=== PATIENT | male | born 1940 | race African-American/Black ===

== ENCOUNTER 2021-01-10 17:04 | Inpatient (IN) | payer MEDICARE ==
[2021-01-10 18:06] LABS: #Monocytes 0.5 10x3/uL (0.0-1.1); #Neutrophils 3.8 10x3/uL (1.5-8.4); %Basophils 0.5 % (0.0-2.0); %Eosinophils 0.3 % (0.0-6.0); %Lymphocytes 32.8 % (18.0-47.0); %Monocytes 8.2 % (0.0-10.0); Hemoglobin 12.5 g/dL (13.5-17.5); Mean Corpuscular HGB CONC 33.1 g/dL (32.0-36.0); Mean Corpuscular Hemoglobin 29.3 pg (27.0-33.0); Mean Corpuscular Volume 88.7 fl (81.2-95.1); Mean Platelet Volume 9.5 fl (7.4-10.4); Platelet Count 260 10x3/uL (150-450); RBC Distribution Width 12.4 % (11.5-14.5); Red Blood Cell (RBC) Count 4.26 10x6/uL (4.32-5.72); White Blood Cell (WBC) Count 6.5 10x3/uL (3.5-10.5)
[2021-01-10 18:26] LABS: ALT (SGPT) 15 U/L (8-55); AST (SGOT) 19 U/L (5-34); Albumin 4.1 g/dL (3.4-4.8); Alkaline Phosphatase 53 U/L (40-110); Anion Gap 14 mmol/L (10-20); BUN (Urea Nitrogen) 13 mg/dL (8.4-25.7); Bilirubin, Total 1.2 mg/dL (0.2-1.2); Calc. Creatinine Clearance 0 mL/min (70-130); Calcium 9.4 mg/dL (7.8-10.44); Carbon Dioxide 26 mmol/L (23-31); Chloride 101 mmol/L (98-107); Glucose 108 mg/dL (83-110); Magnesium 2.2 mg/dL (1.6-2.6); Potassium 4.3 mmol/L (3.5-5.1); Protein, Total 7.1 g/dL (5.8-8.1); Sodium 137 mmol/L (136-145)
[2021-01-10] MEDS ORDERED: Aspirin Chewable 81 MG TAB ONE (19:31)
[2021-01-10] MEDS ORDERED: HYDROcodone/Acetaminophen 5/325 mg Tablet PO PRN (21:16)
[2021-01-10] MEDS ORDERED: Acetaminophen 325 MG TAB PO PRN (21:16)
[2021-01-10] MEDS ORDERED: Calcium Carbonate 500 MG ChewTAB PO PRN (21:16)
[2021-01-10] MEDS ORDERED: Senokot S 8.6-50 MG TAB PO PRN (21:16)
[2021-01-10 22:11] LABS: SARS-CoV-2 NAA Rapid Test Not Detected (NotDetected)
[2021-01-10] MEDS ORDERED: cloNIDine 0.2 MG TAB PO SCH (23:00)
[2021-01-10] MEDS ORDERED: Apixaban 5 MG TAB PO SCH (23:00)
[2021-01-10] MEDS ORDERED: cloNIDine 0.1 MG TAB PO SCH (23:45)
[2021-01-11 00:02] LABS: Bilirubin Neg (Negative); Blood, Urine Negative (Negative); Clarity Clear (Clear); Glucose, Urine (Dipstick) Normal (Negative); Ketone, Urine 5 mg/dL (Negative); Leukocyte Negative (Negative); Nitrite Negative (Negative); Protein, Urine (Dipstick) Negative (Neg-Trace); Specific Gravity, Urine 1.005 (1.002-1.036); Urobilinogen Normal mg/dL (Less than 2)
[2021-01-11 00:16] LABS: Bacteria/HPF None Seen HPF (None Seen); Mucous/LPF None Seen LPF (<2+); RBC/HPF 0-3 HPF (0-3); Squamous Epithelial None Seen HPF (0-3); WBC/HPF None Seen HPF (0-3)
[2021-01-11 01:47] VITALS: BMI 24.5
[2021-01-11] MEDS ORDERED: FLU VACC QS2021-22(65YR UP)/PF 240 MCG/0.7 ML SYRINGE IM ONE (02:00)
[2021-01-11 05:40] LABS: Cardiac Risk 2.5 (Less than 4.5)
[2021-01-11 05:55] LABS: Thyroid Stimulating Hormone 0.8467 uIU/mL (0.35-4.94)
[2021-01-11] MEDS: Meclizine HCl 12.5 MG TAB PO SCH ×3 (07:06→21:01)
[2021-01-11] MEDS ORDERED: Famotidine 20 MG TAB PO SCH (09:00)
[2021-01-11] MEDS: cloNIDine 0.1 MG TAB PO SCH ×2 (10:29→21:00)
[2021-01-11] MEDS: Aspirin 81 mg Enteric Coated Tablet PO SCH (10:29)
[2021-01-11] MEDS: Apixaban 5 MG TAB PO SCH ×2 (10:29→21:01)
[2021-01-11] MEDS: Famotidine 20 MG TAB PO SCH (10:30)
[2021-01-11] MEDS: Losartan Potassium 50 MG TAB PO SCH (10:30)
[2021-01-11] MEDS: Atorvastatin Calcium 40 MG TAB PO SCH (21:01)
[2021-01-12 04:07] LABS: #Eosinphils 0.1 10x3/uL (0.0-0.5); #Monocytes 0.6 10x3/uL (0.0-1.1); #Neutrophils 2.5 10x3/uL (1.5-8.4); %Basophils 0.2 % (0.0-2.0); %Eosinophils 1.5 % (0.0-6.0); %Lymphocytes 42.4 % (18.0-47.0); %Monocytes 10.1 % (0.0-10.0); %Neutrophils 45.6 % (40.0-75.0); Hemoglobin 11.8 g/dL (13.5-17.5); Mean Corpuscular HGB CONC 33.4 g/dL (32.0-36.0); Mean Corpuscular Hemoglobin 29.6 pg (27.0-33.0); Mean Corpuscular Volume 88.5 fl (81.2-95.1); Mean Platelet Volume 9.2 fl (7.4-10.4); Platelet Count 238 10x3/uL (150-450); RBC Distribution Width 12.8 % (11.5-14.5); Red Blood Cell (RBC) Count 3.99 10x6/uL (4.32-5.72); White Blood Cell (WBC) Count 5.5 10x3/uL (3.5-10.5)
[2021-01-12 04:24] LABS: Anion Gap 9 mmol/L (10-20); BUN (Urea Nitrogen) 16 mg/dL (8.4-25.7); Calc. Creatinine Clearance 47 mL/min (70-130); Calcium 9.1 mg/dL (7.8-10.44); Carbon Dioxide 28 mmol/L (23-31); Chloride 105 mmol/L (98-107); Glucose 108 mg/dL (83-110); Magnesium 2.2 mg/dL (1.6-2.6); Potassium 4.2 mmol/L (3.5-5.1); Sodium 138 mmol/L (136-145)
[2021-01-12] MEDS: Meclizine HCl 12.5 MG TAB PO SCH ×3 (06:01→20:39)
[2021-01-12] MEDS: Losartan Potassium 50 MG TAB PO SCH (10:32)
[2021-01-12] MEDS: Apixaban 5 MG TAB PO SCH ×2 (10:32→20:40)
[2021-01-12] MEDS: Aspirin 81 mg Enteric Coated Tablet PO SCH (10:33)
[2021-01-12] MEDS: cloNIDine 0.1 MG TAB PO SCH ×2 (10:33→20:39)
[2021-01-12] MEDS: Famotidine 20 MG TAB PO SCH (10:33)
[2021-01-12] MEDS: Atorvastatin Calcium 40 MG TAB PO SCH (20:40)
[2021-01-13] MEDS ORDERED: Sodium Chloride 0.9% 1,000 ML IV SCH (08:30)
[2021-01-13 08:46] LABS: #Eosinphils 0.1 10x3/uL (0.0-0.5); #Monocytes 0.6 10x3/uL (0.0-1.1); #Neutrophils 2.7 10x3/uL (1.5-8.4); %Basophils 0.3 % (0.0-2.0); %Eosinophils 1.7 % (0.0-6.0); %Lymphocytes 41.8 % (18.0-47.0); Hemoglobin 13.1 g/dL (13.5-17.5); Mean Corpuscular Hemoglobin 29.6 pg (27.0-33.0); Mean Corpuscular Volume 89.6 fl (81.2-95.1); Mean Platelet Volume 9.1 fl (7.4-10.4); Platelet Count 257 10x3/uL (150-450); RBC Distribution Width 12.8 % (11.5-14.5); Red Blood Cell (RBC) Count 4.43 10x6/uL (4.32-5.72); White Blood Cell (WBC) Count 5.9 10x3/uL (3.5-10.5)
[2021-01-13 08:59] LABS: Anion Gap 11 mmol/L (10-20); BUN (Urea Nitrogen) 19 mg/dL (8.4-25.7); Calc. Creatinine Clearance 50 mL/min (70-130); Calcium 9.6 mg/dL (7.8-10.44); Carbon Dioxide 30 mmol/L (23-31); Chloride 105 mmol/L (98-107); Glucose 107 mg/dL (83-110); Potassium 4.7 mmol/L (3.5-5.1); Sodium 141 mmol/L (136-145)
[2021-01-13] MEDS: Apixaban 5 MG TAB PO SCH ×2 (09:24→20:27)
[2021-01-13] MEDS: cloNIDine 0.1 MG TAB PO SCH ×2 (09:24→20:27)
[2021-01-13] MEDS: Losartan Potassium 50 MG TAB PO SCH (09:24)
[2021-01-13] MEDS: Famotidine 20 MG TAB PO SCH (09:25)
[2021-01-13] MEDS: Aspirin 81 mg Enteric Coated Tablet PO SCH (09:25)
[2021-01-13] MEDS: Atorvastatin Calcium 40 MG TAB PO SCH (20:27)
[2021-01-14 04:19] LABS: #Eosinphils 0.1 10x3/uL (0.0-0.5); #Monocytes 0.5 10x3/uL (0.0-1.1); #Neutrophils 2.6 10x3/uL (1.5-8.4); %Basophils 0.4 % (0.0-2.0); %Eosinophils 1.7 % (0.0-6.0); %Lymphocytes 38.5 % (18.0-47.0); %Monocytes 10.3 % (0.0-10.0); %Neutrophils 48.9 % (40.0-75.0); Hemoglobin 12.1 g/dL (13.5-17.5); Mean Corpuscular HGB CONC 33.4 g/dL (32.0-36.0); Mean Corpuscular Hemoglobin 29.9 pg (27.0-33.0); Mean Corpuscular Volume 89.4 fl (81.2-95.1); Mean Platelet Volume 9.3 fl (7.4-10.4); Platelet Count 248 10x3/uL (150-450); RBC Distribution Width 12.6 % (11.5-14.5); Red Blood Cell (RBC) Count 4.05 10x6/uL (4.32-5.72); White Blood Cell (WBC) Count 5.2 10x3/uL (3.5-10.5)
[2021-01-14 04:29] LABS: Anion Gap 12 mmol/L (10-20); BUN (Urea Nitrogen) 18 mg/dL (8.4-25.7); Calc. Creatinine Clearance 53 mL/min (70-130); Calcium 9.2 mg/dL (7.8-10.44); Carbon Dioxide 27 mmol/L (23-31); Chloride 105 mmol/L (98-107); Glucose 107 mg/dL (83-110); Potassium 4.7 mmol/L (3.5-5.1); Sodium 139 mmol/L (136-145)
[2021-01-14] MEDS: Apixaban 5 MG TAB PO SCH ×2 (10:36→21:44)
[2021-01-14] MEDS: Famotidine 20 MG TAB PO SCH (10:37)
[2021-01-14] MEDS: Aspirin 81 mg Enteric Coated Tablet PO SCH (10:38)
[2021-01-14] MEDS: cloNIDine 0.1 MG TAB PO SCH ×2 (10:38→21:44)
[2021-01-14] MEDS: Losartan Potassium 50 MG TAB PO SCH (10:39)
[2021-01-14] MEDS: Atorvastatin Calcium 40 MG TAB PO SCH (21:45)
[2021-01-15] MEDS: cloNIDine 0.1 MG TAB PO SCH ×2 (08:47→21:26)
[2021-01-15] MEDS: Losartan Potassium 50 MG TAB PO SCH (08:47)
[2021-01-15] MEDS: Famotidine 20 MG TAB PO SCH (08:47)
[2021-01-15] MEDS: Apixaban 5 MG TAB PO SCH ×2 (08:47→21:25)
[2021-01-15] MEDS: Aspirin 81 mg Enteric Coated Tablet PO SCH (08:48)
[2021-01-15] MEDS: Amlodipine 10 MG TAB PO SCH (08:49)
[2021-01-15] MEDS ORDERED: Amlodipine 5 MG TAB PO SCH (09:00)
[2021-01-15] MEDS: Atorvastatin Calcium 40 MG TAB PO SCH (21:26)
[2021-01-16] MEDS: Aspirin 81 mg Enteric Coated Tablet PO SCH (08:42)
[2021-01-16] MEDS: cloNIDine 0.1 MG TAB PO SCH (08:42)
[2021-01-16] MEDS: Amlodipine 10 MG TAB PO SCH (08:42)
[2021-01-16] MEDS: Losartan Potassium 50 MG TAB PO SCH (08:42)
[2021-01-16] MEDS: Apixaban 5 MG TAB PO SCH (08:42)
[2021-01-16] MEDS: Famotidine 20 MG TAB PO SCH (08:43)
[2021-01-16 12:06] VITALS: BP 108/57; TEMP 97
== END 2021-01-16 16:08 | DRG 65 ==
LOC: CSHERS 17:04 → CSHTELE 17:05 → OBSVTOIN 01-12 08:11
PROVIDERS: ADMIT Student in an Organized Health Care Education/Training Program; ATTEND Hospitalist
DX: I63.9 Cerebral infarction, unspecified (principal); G81.94 Hemiplegia, unspecified affecting left nondominant side; Z20.822 Contact with and (suspected) exposure to COVID-19; E78.5 Hyperlipidemia, unspecified; N18.2 Chronic kidney disease, stage 2 (mild); R73.03 Prediabetes; I12.9 Hypertensive chronic kidney disease with stage 1 through stage 4 chronic kidney disease, or unspecified chronic kidney disease; I16.0 Hypertensive urgency; Z79.01 Long term (current) use of anticoagulants; Z79.82 Long term (current) use of aspirin; Z95.0 Presence of cardiac pacemaker; Z86.73 Personal history of transient ischemic attack (TIA), and cerebral infarction without residual deficits; Z86.711 Personal history of pulmonary embolism; Z98.890 Other specified postprocedural states
CPT/HCPCS: 0240U; 36415; 70450; 71045; 74177; 80048; 80053; 80061; 81001; 82607; 82746; 83036; 83690; 83735; 84443; 84484; 85025; 93005; 93306; 93880; J7050

== ENCOUNTER 2021-01-29 18:25 | Observation (INO) | payer MEDICARE ==
[2021-01-29 18:45] LABS: #Monocytes 0.6 10x3/uL (0.0-1.1); #Neutrophils 3.1 10x3/uL (1.5-8.4); %Basophils 0.3 % (0.0-2.0); %Eosinophils 0.6 % (0.0-6.0); %Lymphocytes 42.4 % (18.0-47.0); %Monocytes 8.6 % (0.0-10.0); %Neutrophils 47.6 % (40.0-75.0); Hemoglobin 12.4 g/dL (13.5-17.5); Mean Corpuscular HGB CONC 32.7 g/dL (32.0-36.0); Mean Corpuscular Hemoglobin 29.5 pg (27.0-33.0); Mean Platelet Volume 9.3 fl (7.4-10.4); Platelet Count 266 10x3/uL (150-450); RBC Distribution Width 13.1 % (11.5-14.5); Red Blood Cell (RBC) Count 4.21 10x6/uL (4.32-5.72); White Blood Cell (WBC) Count 6.5 10x3/uL (3.5-10.5)
[2021-01-29 19:01] LABS: ALT (SGPT) 16 U/L (8-55); AST (SGOT) 18 U/L (5-34); Albumin 4.2 g/dL (3.4-4.8); Alkaline Phosphatase 49 U/L (40-110); Anion Gap 12 mmol/L (10-20); BUN (Urea Nitrogen) 14 mg/dL (8.4-25.7); Bilirubin, Total 1.2 mg/dL (0.2-1.2); Calc. Creatinine Clearance 0 mL/min (70-130); Calcium 9.6 mg/dL (7.8-10.44); Carbon Dioxide 29 mmol/L (23-31); Chloride 104 mmol/L (98-107); Glucose 100 mg/dL (83-110); Lipase 54 U/L (8-78); Potassium 4.2 mmol/L (3.5-5.1); Protein, Total 7.2 g/dL (5.8-8.1); Sodium 141 mmol/L (136-145)
[2021-01-29] MEDS ORDERED: Acetaminophen 500 MG TAB ONE (19:34)
[2021-01-29] MEDS ORDERED: Aspirin Chewable 81 MG TAB ONE (21:25)
[2021-01-29] MEDS ORDERED: Zolpidem Tartrate 5 MG TAB PO PRN (21:55)
[2021-01-29] MEDS ORDERED: Nitroglycerin 0.4 MG TAB (25 Tab Bottle) SL PRN (21:55)
[2021-01-29] MEDS ORDERED: Acetaminophen 325 MG TAB PO PRN (21:55)
[2021-01-29] MEDS ORDERED: Calcium Carbonate 500 MG ChewTAB PO PRN (21:55)
[2021-01-29] MEDS ORDERED: Senokot S 8.6-50 MG TAB PO PRN (21:55)
[2021-01-29] MEDS ORDERED: hydrALAZINE 20 MG/ML VIAL SLOW IVP PRN (21:59)
[2021-01-29] MEDS ORDERED: hydrALAZINE 20 MG/ML VIAL ONE (22:18)
[2021-01-29 22:25] LABS: SARS-CoV-2 NAA Rapid Test Not Detected (NotDetected)
[2021-01-29 22:30] LABS: Troponin I Less than 0.010 ng/mL (< 0.028)
[2021-01-30 04:46] LABS: Anion Gap 10 mmol/L (10-20); BUN (Urea Nitrogen) 17 mg/dL (8.4-25.7); Calc. Creatinine Clearance 0 mL/min (70-130); Calcium 9.2 mg/dL (7.8-10.44); Carbon Dioxide 26 mmol/L (23-31); Chloride 107 mmol/L (98-107); Glucose 95 mg/dL (83-110); Magnesium 2.3 mg/dL (1.6-2.6); Potassium 4.2 mmol/L (3.5-5.1); Sodium 139 mmol/L (136-145)
[2021-01-30 07:37] VITALS: BMI 24.7
[2021-01-30] MEDS ORDERED: Carvedilol 6.25 MG TAB PO SCH ×2 (08:30→17:00)
[2021-01-30] MEDS ORDERED: Amlodipine 10 MG TAB PO SCH (09:00)
[2021-01-30] MEDS ORDERED: Losartan Potassium 50 MG TAB PO SCH (09:00)
[2021-01-30] MEDS ORDERED: Famotidine 20 MG TAB PO SCH (09:00)
[2021-01-30] MEDS: cloNIDine 0.1 MG TAB PO SCH ×2 (09:35→21:45)
[2021-01-30] MEDS: Apixaban 5 MG TAB PO SCH ×2 (09:35→21:45)
[2021-01-30] MEDS: Aspirin 81 mg Enteric Coated Tablet PO SCH (09:35)
[2021-01-30] MEDS: Hydrochlorothiazide 25 MG TAB PO SCH (09:35)
[2021-01-30] MEDS: Valsartan 80 MG TAB PO SCH (09:46)
[2021-01-30] MEDS ORDERED: FLU VACC QS2021-22(65YR UP)/PF 240 MCG/0.7 ML SYRINGE IM ONE (10:45)
[2021-01-30] MEDS: Carvedilol 25 MG TAB PO SCH (18:22)
[2021-01-30] MEDS: Famotidine 20 MG TAB PO SCH (21:45)
[2021-01-30] MEDS: Atorvastatin Calcium 40 MG TAB PO SCH (21:45)
[2021-01-31] MEDS: Famotidine 20 MG TAB PO SCH (08:20)
[2021-01-31] MEDS: Aspirin 81 mg Enteric Coated Tablet PO SCH (08:20)
[2021-01-31] MEDS: Carvedilol 25 MG TAB PO SCH (08:20)
[2021-01-31] MEDS: cloNIDine 0.1 MG TAB PO SCH (08:20)
[2021-01-31] MEDS: Apixaban 5 MG TAB PO SCH (08:20)
[2021-01-31] MEDS: Hydrochlorothiazide 25 MG TAB PO SCH (08:21)
[2021-01-31] MEDS: Valsartan 80 MG TAB PO SCH (08:21)
[2021-01-31 13:56] VITALS: BP 102/59; TEMP 98.5
== END 2021-01-31 15:08 | disposition home or self-care (01) ==
LOC: CSHERS 18:25 → CSHTELE 18:26
PROVIDERS: ADMIT Student in an Organized Health Care Education/Training Program; ATTEND Family Medicine
DX: I16.0 Hypertensive urgency (principal); R07.89 Other chest pain; E78.5 Hyperlipidemia, unspecified; Z95.0 Presence of cardiac pacemaker; Z86.711 Personal history of pulmonary embolism; Z86.73 Personal history of transient ischemic attack (TIA), and cerebral infarction without residual deficits; Z79.899 Other long term (current) drug therapy; Z79.82 Long term (current) use of aspirin; Z79.01 Long term (current) use of anticoagulants; Z20.822 Contact with and (suspected) exposure to COVID-19
CPT/HCPCS: 71045; 80048; 80053; 83690; 83735; 84443; 84484 ×3; 85025; 85379; 93005; 94760; U0002; 36415; 93010; G0378; J0360

== ENCOUNTER 2023-01-31 06:48 | Emergency (ER) | payer MEDICARE ==
[2023-01-31 07:21] LABS: #Eosinphils 0.2 10x3/uL (0.0-0.5); #Monocytes 0.6 10x3/uL (0.0-1.1); #Neutrophils 1.9 10x3/uL (1.5-8.4); %Basophils 0.5 % (0.0-2.0); %Eosinophils 3.5 % (0.0-6.0); %Lymphocytes 52.2 % (18.0-47.0); %Monocytes 11.1 % (0.0-10.0); %Neutrophils 32.5 % (40.0-75.0); Hematocrit 40.2 % (38.8-50.0); Hemoglobin 13.4 g/dL (13.5-17.5); Mean Corpuscular HGB CONC 33.3 g/dL (32.0-36.0); Mean Corpuscular Hemoglobin 29.4 pg (27.0-33.0); Mean Corpuscular Volume 88.2 fl (81.2-95.1); Mean Platelet Volume 10.4 fl (7.4-10.4); Platelet Count 234 10x3/uL (150-450); RBC Distribution Width 12.9 % (11.5-14.5); Red Blood Cell (RBC) Count 4.56 10x6/uL (4.32-5.72); White Blood Cell (WBC) Count 5.7 10x3/uL (3.5-10.5)
[2023-01-31 07:35] LABS: Troponin I 0.011 ng/mL (< 0.028)
[2023-01-31 07:48] LABS: ALT (SGPT) 15 U/L (8-55); AST (SGOT) 30 U/L (5-34); Albumin 4.2 g/dL (3.4-4.8); Alkaline Phosphatase 66 U/L (40-110); Anion Gap 15 mmol/L (10-20); BUN (Urea Nitrogen) 23 mg/dL (8.4-25.7); Bilirubin, Total 0.9 mg/dL (0.2-1.2); Calc. Creatinine Clearance 0 mL/min (70-130); Calcium 9.6 mg/dL (7.8-10.44); Carbon Dioxide 25 mmol/L (23-31); Chloride 107 mmol/L (98-107); Estimated GFR 56; Globulin 2.9 g/dL (2.4-3.5); Glucose 93 mg/dL (83-110); Potassium 4.4 mmol/L (3.5-5.1); Protein, Total 7.1 g/dL (5.8-8.1); Sodium 143 mmol/L (136-145)
[2023-01-31 08:04] LABS: Bilirubin Neg (Negative); Blood, Urine Negative (Negative); Clarity Clear (Clear); Glucose, Urine (Dipstick) Normal (Negative); Ketone, Urine Negative (Negative); Leukocyte Negative (Negative); Nitrite Negative (Negative); Protein, Urine (Dipstick) Negative (Neg-Trace); Specific Gravity, Urine 1.015 (1.005-1.030); Urobilinogen Normal mg/dL (Less than 2); pH, Urine 6.5 (5.0-9.0)
[2023-01-31 08:24] LABS: Bacteria/HPF None Seen HPF (None Seen); CAUTI Indications for Culture Pelvic or flank pain; RBC/HPF None Seen HPF (0-3); Squamous Epithelial 0-3 HPF (0-3); WBC/HPF None Seen HPF (0-3)
[2023-01-31 08:25] LABS: Urine Culture Reflex No No
[2023-01-31] MEDS ORDERED: hydrALAZINE 20 MG/ML VIAL ONE (09:33)
[2023-01-31] MEDS ORDERED: Iopamidol 370 76% 100 ML VIAL ONE (12:29)
== END 2023-01-31 10:39 | disposition home or self-care (01) ==
LOC: CSHERS 06:48
DX: M54.50 Low back pain, unspecified (principal); I10 Essential (primary) hypertension
CPT/HCPCS: 70450; 70496; 70498; 71045; 80053; 81001; 84484; 85025; 93005; J0360; 96374

== ENCOUNTER 2023-08-27 11:55 | Emergency (ER) | payer MEDICARE | END 2023-08-27 13:47 | disposition home or self-care (01) | LOC: CSHERS 11:55 | DX: H61.23 Impacted cerumen, bilateral (principal); S09.90XA Unspecified injury of head, initial encounter; I10 Essential (primary) hypertension; W22.8XXA Striking against or struck by other objects, initial encounter | CPT/HCPCS: 70450 ==

== ENCOUNTER 2024-10-07 16:48 | Emergency (ER) | payer MEDICARE ==
[2024-10-07 18:49] LABS: #Basophils Less than 0.03 10x3/uL (0.0-0.2); #Eosinophils 0.08 10x3/uL (0.0-0.5); #Monocytes 0.47 10x3/uL (0.0-1.1); #Neutrophils 1.90 10x3/uL (1.5-8.4); %Basophils 0.5 % (0.0-2.0); %Eosinophils 1.8 % (0.0-6.0); %Lymphocytes 43.8 % (18.0-47.0); %Monocytes 10.7 % (0.0-10.0); %Neutrophils 43.0 % (40.0-75.0); Hematocrit 39.7 % (38.8-50.0); Hemoglobin 13.1 g/dL (13.5-17.5); Mean Corpuscular Hemoglobin 29.6 pg (27.0-33.0); Mean Corpuscular Volume 89.8 fL (81.2-95.1); Platelet Count 256 10x3/uL (150-450); Red Blood Cell (RBC) Count 4.42 10x6/uL (4.32-5.72); White Blood Cell (WBC) Count 4.41 10x3/uL (3.5-10.5)
[2024-10-07 18:57] LABS: ALT (SGPT) 13 U/L (Less than 45); AST (SGOT) 22 U/L (11-34); Albumin 4.0 g/dL (3.1-4.5); Alkaline Phosphatase 65 U/L (40-110); Anion Gap 15 mmol/L (10-20); BUN (Urea Nitrogen) 25 mg/dL (8.4-25.7); Bilirubin, Total 1.2 mg/dL (0.3-1.2); Calc. Creatinine Clearance 0 mL/min (70-130); Calcium 9.5 mg/dL (7.8-10.44); Carbon Dioxide 28 mmol/L (23-31); Chloride 99 mmol/L (98-107); Globulin 3.4 g/dL (2.4-3.5); Glucose 139 mg/dL (83-110); Potassium 4.3 mmol/L (3.5-5.1); Sodium 138 mmol/L (136-145)
== END 2024-10-07 18:28 | disposition home or self-care (01) ==
LOC: CSHERS 16:48
DX: M54.50 Low back pain, unspecified (principal); M25.551 Pain in right hip; I10 Essential (primary) hypertension; Z79.01 Long term (current) use of anticoagulants; Z86.73 Personal history of transient ischemic attack (TIA), and cerebral infarction without residual deficits; W06.XXXA Fall from bed, initial encounter
CPT/HCPCS: 36415; 70450; 72125; 72128; 72131; 80053; 85025

== ENCOUNTER 2025-02-01 07:16 | Outpatient (CLI) | payer MEDICARE ==
[2025-02-01] MEDS ORDERED: Iopamidol 300 61% 100 ML VIAL FS ONE (10:33)
== END 2025-02-01 07:17 | disposition home or self-care (01) ==
LOC: CSHCT 07:16
PROVIDERS: ATTEND Family Medicine Sports Medicine
DX: R06.00 Dyspnea, unspecified (principal)
CPT/HCPCS: 71260; Q9967